=== PATIENT | male | born 1950 | race Caucasian/White ===

== ENCOUNTER 2023-03-08 08:00 | Outpatient (CLI) | payer MEDICARE ==
--- NOTE | 2023-03-08 14:20 | XRAY Report ---
PROCEDURE: Knee 3 View LT INDICATIONS: SPRAIN OF LEFT KNEE TECHNIQUE: 3 views of the left knee(s) were acquired. COMPARISON: None. FINDINGS: Bones: Mild medial joint space narrowing. No displaced fracture or dislocation. There is osteophytic lipping. Soft tissues: Small joint effusion. IMPRESSION: Mild degenerative changes. No acute fracture or dislocation. If there is high concern for further diego angement, consider MRI evaluation. Small knee joint effusion. Reviewed by: Moisés Espinoza MD on 03/08/2023 2:19 PM PDT Approved by: Moisés Espinoza MD on 03/08/2023 2:19 PM PDT Station ID: [id number]
== END 2023-03-08 23:59 | disposition home or self-care (01) ==
LOC: DI.S 08:00
PROVIDERS: ATTEND Physician Assistant Medical
DX: M17.12 Unilateral primary osteoarthritis, left knee (principal)

== ENCOUNTER 2023-03-08 08:21 | Outpatient (CLI) | payer MEDICARE | END 2023-03-08 23:59 | disposition EMS.NT | LOC: EMS 08:21 | DX: M25.562 Pain in left knee (principal) ==

== ENCOUNTER 2023-03-23 08:00 | Outpatient (CLI) | payer MEDICARE ==
--- NOTE | 2023-03-23 12:13 | XRAY Report ---
PROCEDURE: Knee 3 View LT INDICATIONS: LEFT KNEE PAIN TECHNIQUE: 3 views of the left knee(s) were acquired. COMPARISON: None. FINDINGS: Bones: No fractures or dislocations. No suspicious bony lesions. Mild medial compartment joint spac e narrowing without osteophyte or remodeling Soft tissues: No knee joint effusion. No suspicious soft tissue calcifications or masses. IMPRESSION: Mild medial compartment joint space narrowing. No joint effusion Reviewed by: Rafa Ivy MD on 03/23/2023 11:12 AM POP Approved by: Rafa Ivy MD on 03/23/2023 11:12 AM POP Station ID: [id number]
== END 2023-03-23 23:59 | disposition home or self-care (01) ==
LOC: DI.WOS 08:00
PROVIDERS: ATTEND Physician Assistant Surgical
DX: S83.8X2A Sprain of other specified parts of left knee, initial encounter (principal); M17.12 Unilateral primary osteoarthritis, left knee

== ENCOUNTER 2023-09-28 08:20 | Day surgery (SDC) | payer MEDICARE ==
[2023-09-28] MEDS ORDERED: LACTATED RINGERS 1,000 ML IV ONE ×2 (08:30→13:23)
[2023-09-28] MEDS ORDERED: ceFAZolin 2 GM VIAL ONE (09:19)
[2023-09-28] MEDS ORDERED: BUPIVACAINE 0.25% PF 30 ML VIAL ONE (10:17)
[2023-09-28] MEDS ORDERED: MIDAZOLAM 2 MG/2 ML VIAL ONE (11:04)
[2023-09-28] MEDS ORDERED: ONDANSETRON 4 MG/2 ML VIAL ONE (11:05)
[2023-09-28] MEDS ORDERED: fentaNYL 100 MCG/2 ML VIAL ONE (11:05)
[2023-09-28] MEDS ORDERED: ROCURONIUM 50 MG/5 ML VIAL ONE (11:05)
[2023-09-28] MEDS ORDERED: LIDOCAINE-PF 2% 10 ML AMP SUBQ ONE (11:05)
[2023-09-28] MEDS ORDERED: ACETAMINOPHEN 1,000 MG/100 ML 1,000 MG/100 ML BAG IV ONE (11:38)
--- NOTE | 2023-09-28 11:42 | ANESTHESIA ---
Pre-Anesthesia VS, & Labs - Diagnosis ventral hernia - Procedure ventral hernia repair Vital Signs: Temp Pulse Resp BP Pulse Ox O2 Flow Rate 36.5 C 78 16 166/96 H 99 09/28/23 08:30 09/28/23 08:30 09/28/23 08:30 09/28/23 08:30 09/28/23 08:30 Height: 5 ft 9 in Weight (kg): 115.3 kg Body Mass Index: 37.5 BMI Classification: Obese - NPO >8 hours Home Medications and Allergies Home Medications: Ambulatory Orders Lisinopril [Zestril] 10 mg PO DAILY 09/22/23 Lisinopril [Zestril] 10 mg PO DAILY 09/22/23 Allergies/Adverse Reactions: Allergies Allergy/AdvReac Type Severity Reaction Status Date / Time No Known Drug Allergies Allergy Verified 09/22/23 12:38 Anes History & Medical History - Anesthetic History Anesthesia Complications: reports: No previous complications Family history of Anesthesia Complications: Denies Family history of Malignant Hyperthermia: Denies - Medical History Cardiovascular: reports: None, Hypertension Pulmonary: reports: None Gastrointestinal: reports: None Urinary: reports: None Neuro: reports: None Musculoskeletal: reports: Osteoarthritis Endocrine/Autoimmune: reports: None Skin: reports: None Psychosocial: reports: Alcohol, Cannabis - Surgical History Orthopedic: reports: Other Exam General: Alert (trunchal obesity), Oriented x3, Cooperative Dental: Poor dentition, Other (very poor dentition with many missing teeth, broken teeth) Mouth Openin Fingerbreadth Neck Mobility: Reduced Mallampati classification: II Thyromental Distance: 4-6 cm Respiratory: Lungs clear Cardiovascular: Regular rate Plan Anesthesia Type: General Consent for Procedure(s) Verified and Reviewed: Yes Code Status: Attempt Resuscitation ASA classification: 2-Mild systemic disease Is this case an emergency?: No
[2023-09-28] MEDS ORDERED: BUPIVACAINE 0.25% PF 30 ML VIAL SUBQ ONE (11:50)
[2023-09-28] MEDS ORDERED: ONDANSETRON 4 MG/2 ML VIAL IVP PRN ×2 (12:34→13:21)
[2023-09-28] MEDS ORDERED: NALOXONE 0.4 MG/ML VIAL IVP PRN (12:34)
[2023-09-28] MEDS ORDERED: MORPHINE 2 MG/ML CARPUJECT IVP PRN (12:34)
[2023-09-28] MEDS ORDERED: ATROPINE ABBOJECT 1 MG/10 ML SYRINGE IVP PRN (12:34)
[2023-09-28] MEDS ORDERED: fentaNYL 100 MCG/2 ML VIAL IVP PRN (12:34)
[2023-09-28] MEDS ORDERED: ePHEDrine 50 MG/ML VIAL IVP PRN (12:34)
[2023-09-28] MEDS ORDERED: METOCLOPRAMIDE 10 MG/2 ML VIAL IVP PRN (12:34)
[2023-09-28] MEDS ORDERED: LACTATED RINGERS 1,000 ML IV SCH ×2 (13:00→13:25)
[2023-09-28] MEDS ORDERED: PROPOFOL 200 MG/20 ML VIAL IVP ONE (13:05)
[2023-09-28] MEDS ORDERED: SUGAMMADEX 200 MG/2 ML VIAL IVP ONE (13:05)
[2023-09-28] MEDS ORDERED: HYDROmorphone 0.5 MG/0.5 ML SYRINGE IVP PRN (13:21)
[2023-09-28] MEDS ORDERED: HYDROcod/ACETAM 10 MG/325 MG TABLET PO PRN (13:21)
[2023-09-28] MEDS: HYDROmorphone 0.5 MG/0.5 ML SYRINGE IVP PRN ×2 (13:27→13:35)
[2023-09-28] MEDS ORDERED: HYDROmorphone 0.5 MG/0.5 ML SYRINGE ONE (13:34)
--- NOTE | 2023-09-28 13:44 | OPERATIVE REPORT ---
Operative Report - General Procedure Date: 09/28/23 Planned Procedure: open repair incarcerated ventral hernia Pre-Op Diagnosis: 10 x 12 cm incarcerated ventral hernia bulge Procedure Performed: open repair incarcerated ventral hernia with mesh, preperitoneal Post Op Diagnosis: same - Procedure Note Primary Surgeon: karen christopher Anesthesia Technique: General ET tube, Local Pathology: not sent Estimated Blood Loss (mL): 10 Drain/Tube Type: Other (none) Indications: large painful hernia bulge Findings: 4 x 7 cm fascial defect. incarcerated omentum and transverse colon Complications: none - Other Other Information/Narrative: The patient was properly identified brought to the operating room and placed in supine position. General endotracheal anesthesia was induced. Sequential compression devices were placed. He was prepped and draped in a sterile fashion and given preoperative antibiotics. He had a 10 x 12 cm incarcerated hernia bulge periumbilical area. This was partially reduced. Umbilical skin was markedly stretched. An elliptical incision was made removing much of this stretched nearly 10 cm wide umbilical skin. Dissection proceeded down to the hernia sac carefully. The hernia sac was mobilized away from surrounding subcutaneous tissue. Then overlying skin was left attached to the hernia sac. Hernia sac was mobilized down to the fascial defect edge. The hernia sac was then opened. He had dense adhesions of the transverse colon and omentum to the inside of the hernia sac. These adhesions were carefully taken down and t ransverse colon and much of the omentum eventually reduced. Small portion of the omentum was removed. The peritoneum or hernia sac was then carefully mobilized at the fascial defect edge. Redundant hernia sac with the skin was excised. A hole in the peritoneum was closed with a running 3-0 Vicryl suture. A large preperitoneal space was then developed. Hemostasis was assured. 6 inch tall by 2 to 2-1/2 inch wide polypropylene mesh was placed preperitoneal and secured with multiple interrupted 0 Ethibond sutures. Fascia was closed over the mesh with additional 0 Ethibond sutures. The mesh lay in good position without tension. Subcutaneous tissue was closed in 2 layers with interrupted 2- 0 Vicryl suture. Buried interrupted subdermal 3-0 Vicryl sutures were then placed. Skin was closed with a running 4-0 Monocryl subcuticular suture. Steri-Strips and dressing were applied. He tolerated the procedure well was awakened and brought to recovery in good condition.
[2023-09-28] MEDS: HYDROcod/ACETAM 5/325 MG TABLET PO PRN (18:27)
--- NOTE | 2023-09-28 18:49 | ANESTHESIA POST OP EVALUATION ---
Anesthesia Post Eval - Post Anesthesia Eval Vitals: Last Vital Signs Temp 37.1 C 09/28/23 18:24 Pulse 73 09/28/23 18:24 Resp 18 09/28/23 18:24 BP 155/84 H 09/28/23 18:24 Pulse Ox 98 09/28/23 18:24 O2 Flow Rate CV Function Including HR & BP: Stable Pain Control: Satisfactory Nausea & Vomiting: Negative Mental Status: Baseline Respiratory Status: Airway Patent Hydration Status: Satisfactory Anesthesia Complications: None
[2023-09-29] MEDS: HYDROcod/ACETAM 5/325 MG TABLET PO PRN ×2 (01:08→09:00)
--- NOTE | 2023-09-29 09:45 | PROVIDER PROGRESS NOTE ---
Subjective - Subjective Pt reports feeling: Improved (no problems. ambulating last pm. no nausea. pain ok) Objective - Vital Signs/Intake & Output Vital Signs: Vital Signs x48h Temp Pulse Resp BP Pulse Ox 09/29/23 08:30 37.3 C 82 14 111/85 H 96 09/29/23 04:45 37.2 C 74 18 165/85 H 97 Intake & Output: Intake & Output 09/26/23 09/27/23 09/28/23 09/29/23 23:59 23:59 23:59 23:59 Intake Total 450 320 Output Total 10 Balance 440 320 - Objective General Appearance: positive: No acute distress, Alert ENT: positive: No signs of dehydration Neck: positive: No JVD, Trachea midline Respiratory: positive: No respiratory distress Abdomen: positive: Non-tender, No distention, Other (dressing c/d/i. no erythema) Neurologic/Psychiatric: positive: Oriented x3 Assessment/Plan - Problem List (1) Incarcerated ventral hernia Impression: doing well. home later today
[2023-09-29 13:09] VITALS: BP 160/93; O2SAT 93
== END 2023-09-29 13:20 | disposition home or self-care (01) ==
LOC: SDS 08:20 → MS3 13:41 → SDS 09-29 13:20
PROVIDERS: ATTEND Surgery
DX: K43.6 Other and unspecified ventral hernia with obstruction, without gangrene (principal); E66.9 Obesity, unspecified; Z68.37 Body mass index [BMI] 37.0-37.9, adult
CPT/HCPCS: 49596; A9270; C1781; J0131; J1170; J7120